=== PATIENT | male | born 1965 | race Caucasian/White ===

== ENCOUNTER 2020-03-25 02:54 | Emergency (ER) | payer SELFPAY ==
--- NOTE | 2020-03-25 02:59 | XR_ITS ---
WS: [id number] Exam: XR knee LT 3V* [id number] Date/Time of Exam: 03/25/2020 3:00 AM Reason For Exam: injury No acute fracture or dislocation. 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 No joint effusion. Normal soft tissues. XR/XR knee LT 3V* [id number] IMPRESSION: 1. Moderate degenerative change of the medial joint compartment. 2. No fracture or joint effusion.
--- NOTE | 2020-03-25 03:00 | W.ED.FALL ---
HPI - Fall General: Chief Complaint: Wound/Laceration Stated Complaint: injury to right knee/leg Time Seen by Provider: 03/25/20 02:56 Source: patient Mode of arrival: ambulatory Limitations: no limitations History of Present Illness: HPI Narrative: 54-year-old male states that he fell outside just prior to arrival. He fell onto his left leg straight onto his left knee. He does have a laceration over that knee. He states he had slight pain he rates a 6 out of 10. He is able to ambulate. Associated symptoms-after fall: Denies abdominal pain, chest pain, headache(s) or neck pain Review of Systems Const: Denies: fever(s), chills, body aches or change in appetite Eyes: Denies: blurry vision or eye discomfort ENMT: Denies: throat pain or dental pain Card: Denies: chest pain Resp: Denies: dyspnea GI: Denies: abdominal pain, nausea, vomiting or diarrhea : Denies: dysuria Musc: Denies: neck pain or back pain Skin/Breast: Denies: rash Neuro: Denies: headache(s) Psych: Denies: depression David/Lymph: Denies: easy bruising All/Imm: Denies: urticaria Physical Exam Const: COMMON NORMALS: no acute distress, patient oriented x3 and healthy appearing HENMT: COMMON NORMALS: normocephalic and atraumatic HEAD & SCALP: normocephalic and atraumatic Eye: COMMON NORMALS: Equal, round and reactive pupils present and EOMs intact bilaterally PUPIL: Yes Equal, round and reactive pupils present Neck/C-Spine: COMMON NORMALS: full ROM and supple Chest: COMMONS NORMALS: normal inspection of the chest and normal palpation of entire chest wall Resp: COMMON NORMALS: normal respiratory effort, No retractions, No use of accessory muscles and clear to auscultation bilaterally AUSCULTATION: clear to auscultation bilaterally Cardio: COMMON NORMALS: regular rate, regular rhythm and No murmurs present (Cardio) RATE: regular rate RHYTHM: regular rhythm GI: COMMON NORMALS: Normal to inspection, nondistended, normoactive bowel sounds present, Soft to palpation, non-tender and no masses PALPATION: Yes Soft to palpation Extremity: COMMON NORMALS: normal to inspection and full ROM NARRATIVE EXTREMITY EXAM: Slight tenderness over knee does have a recent [place] laceration over his left knee anterior portion Neuro: COMMON NORMALS: patient oriented x3, moves all extremities and no focal motor deficits Psych: COMMON NORMALS: mental status grossly normal, Normal thought process present and cooperative THOUGHT PROCESS: Normal thought process present Skin: COMMON NORMALS: no rashes or lesions noted and no wounds GENERAL SKIN EXAM: no rashes or lesions noted Procedures Laceration Laceration 1: Site: lower extremity Side (If applicable): right Size (cm): 3 Description: flap Depth: simple, single layer Local Anesthetic: lidocaine 1% Amount of anesthesia used (mL): 10 Pre-repair: wound explored and irrigated extensively Skin layer closed with: nylon Size (cm): 4-0 Number of sutures: 7 Technique: simple, interrupted Course Vital Signs: Vital signs: Vital Signs Temperature 97.9 F 03/25/20 03:02 Pulse Rate 72 03/25/20 03:02 Respiratory Rate 18 03/25/20 03:02 Blood Pressure 155/82 03/25/20 03:02 Pulse Oximetry 98 03/25/20 03:02 MDM - Fall MDM Narrative: Medical decision making narrative: Patient presents here with laceration over his knee. X-ray showed no fractures. Patient had his laceration sutured and he is to watch for any signs of infection. He is to have the sutures removed in 2 weeks. 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
[2020-03-25 03:02] VITALS: BP 155/82; PULSE 72; RESP 18; TEMP 36.6; O2SAT 98; BMI 35.6
[2020-03-25] MEDS: tetanus-dipt-pertussis 0.5 mL SDV IM (03:39)
[2020-03-25 03:44] VITALS: BP 118/78; PULSE 73; O2SAT 98
== END 2020-03-25 03:44 | disposition home or self-care (01) ==
PROVIDERS: Emergency Provider Emergency Medicine
DX: S81.011A Laceration without foreign body, right knee, initial encounter (principal); W19.XXXA Unspecified fall, initial encounter; Z23 Encounter for immunization
CPT/HCPCS: 12002; 12345; 73562; 90471; 90715; 99281; 99283

== ENCOUNTER 2020-03-27 19:08 | Emergency (ER) | payer SELFPAY ==
[2020-03-27 19:13] VITALS: PULSE 90; RESP 20; TEMP 36.6; O2SAT 97; BMI 34.7
--- NOTE | 2020-03-27 23:28 | W.ED.EXTPRO ---
HPI - Extremity Problem General: Chief complaint: Extremity Problem,Nontraumatic Stated complaint: poss infection right leg Time Seen by Provider: 03/27/20 23:28 History of Present Illness: HPI Narrative: Patient is a 54-year-old male who comes to the ED with infection around laceration site. Patient was seen here in the ED on March 25 for a laceration to right knee and sutures were used to close it. Patient said he cut his right knee after he slipped on a rock and he fell down causing his right knee to hit body rock causing laceration. The last 24 hours patient has developed a erythema, warmth, tenderness and purulent drainage around the laceration site. He says the redness around the laceration site has continued to get larger. Drainage out of laceration site is malodorous. He also started developing fevers in the last 24 hours as well and he has been taking Tylenol and it has helped bring fevers down. Patient said he was not sent home on any prophylactic antibiotics after discharge from ED on March 25. He did say that he took some leftover Augmentin 1000 mg today before coming to the ED. Associated symptoms: Deny chest pain, fever(s) or rash Review of Systems Const: Denies: fever(s), chills or fatigue Eyes: Denies: change in vision or eye discomfort ENMT: Denies: throat pain, odynophagia, nasal discharge or nasal congestion Card: Denies: chest pain, palpitations, edema, swelling of feet/ankles, dyspnea on exertion or orthopnea Resp: Denies: dyspnea, productive cough or non-productive cough GI: Denies: abdominal pain, nausea, vomiting, diarrhea, constipation or hematochezia : Denies: flank pain, difficulty urinating, dysuria or hematuria Musc: Denies: neck pain, back pain or extremity swelling Skin/Breast: Reports: new lesions (Erythema, warmth and purulent drainage around laceration site.?Right knee.); Denies: rash Neuro: Denies: headache(s), numbness in extremities or weakness in extremities Physical Exam Const: COMMON NORMALS: no acute distress, patient oriented x3, healthy appearing and alert GENERAL APPEARANCE: cooperative and comfortable HENMT: COMMON NORMALS: normocephalic HEAD & SCALP: normocephalic MOUTH: Normal oral and palatal mucosa present THROAT: posterior oropharynx normal and uvula midline Neck/C-Spine: COMMON NORMALS: supple GENERAL: Yes normal visual inspection Resp: COMMON NORMALS: normal respiratory effort, No retractions, No use of accessory muscles and clear to auscultation bilaterally AUSCULTATION: clear to auscultation bilaterally Cardio: COMMON NORMALS: regular rate, regular rhythm, S1 normal heart sound present, S2 normal heart sound present, No gallops present (Cardio), No clicks present (Cardio), No murmurs present (Cardio) and Peripheral pulses 2+ throughout RATE: regular rate RHYTHM: regular rhythm HEART SOUNDS: S1 normal heart sound present and S2 normal heart sound present PERIPHERAL PULSES: Peripheral pulses 2+ throughout GI: COMMON NORMALS: Normal to inspection, nondistended, normoactive bowel sounds present, Soft to palpation, non-tender and no masses PALPATION: Yes Soft to palpation : COMMON NORMALS: Yes no CVA tenderness BLADDER/KIDNEY EXAM: Yes no CVA tenderness Back/Pelvis: COMMON NORMALS: no CVA tenderness Extremity: NARRATIVE EXTREMITY EXAM: Patient has laceration site that is just below the right knee and closed with sutures. It has surrounding erythema, warmth and tenderness. Bandage over laceration site had purulent and malodorous drainage on it. When palpating around laceration site no purulent drainage seen. Findings suggestive of cellulitis. Patient has full range of motion of right knee with very minimal pain. Exam findings negative for septic joint. GENERAL: Yes normal exam except as noted Neuro: COMMON NORMALS: patient oriented x3 and moves all extremities SENSORIUM/ORIENTATION: Yes alert Skin: NARRATIVE SKIN EXAM: Patient has laceration site that is just below the right knee and closed with sutures. It has surrounding erythema, warmth and tenderness. Bandage over laceration site had purulent and malodorous drainage on it. When palpating around laceration site no purulent drainage seen. Findings suggestive of cellulitis GENERAL SKIN EXAM: dry skin Course Vital Signs: Vital signs: Vital Signs Temperature 97.9 F 03/27/20 19:13 Pulse Rate 98 03/28/20 01:53 Respiratory Rate 17 03/28/20 01:53 Blood Pressure 134/89 03/28/20 01:53 Pulse Oximetry 99 03/28/20 01:53 MDM - Extremity (Nontraumatic) MDM Narrative: Medical decision making narrative: Patient is a 54-year-old male who comes to the ED with cellulitis developing around laceration on right knee. Patient was seen here on March 25 to get laceration sutured. Here in the ED patient has some erythema, warmth and tenderness around laceration site with malodorous purulent drainage. Patient has full range of motion in right knee joint with minimal pain ruling out possibility of septic joint. Findings suggestive of cellulitis and patient was given IV Rocephin while here in the ED. He was then discharged with a prescription for clindamycin. He was told to follow-up with his PCP in 5 days to reevaluate infection. Return to ED precautions given. Patient understood agree with plan. Lab Data: Attestation: I reviewed the patient's lab results. Labs: Lab Results 03/28/20 03/28/20 Range/Units 00:12 00:12 WBC 8.9 (4.0-10.0) 10^3/ uL RBC 4.66 (4.1-5.3) 10^6/u L Hgb 13.9 (11.7-16.6) g/dL Hct 41.3 L (42.0-52.0) % MCV 88.6 (80-94) fL MCH 29.8 (28.0-34.0) pg MCHC 33.7 (30.0-36.0) g/dL RDW 12.0 L (12.1-15.1) % Plt Count 148 (130-400) 10^3/c mm MPV 10.6 H (7.4-10.4) fL Neut % (Auto) 67.9 % Lymph % (Auto) 20.8 % [place] % (Auto) 9.9 % Eos % (Auto) 1.0 % Baso % (Auto) 0.2 % Neut # (Auto) 6.03 (1.8-7.7) 10^3/u L Lymph # (Auto) 1.9 (0.8-4.8) 10^3/u L [place] # (Auto) 0.9 (0.2-0.9) 10^3/u L Eos # (Auto) 0.1 (0.0-0.8) 10^3/u L Baso # (Auto) 0.0 (0.0-0.1) 10^3/u L Nucleated RBC % (a uto) 0 % Nucleated RBCs # 0.0 /100WBC Sodium 136 (136-145) mmol/L Potassium 3.8 (3.5-5.1) mmol/L Chloride 99 (98-107) mmol/L Carbon Dioxide 26 (22-29) mmol/L Anion Gap 14.8 (5-19) BUN 11 (6-20) mg/dL Creatinine 0.7 (0.7-1.2) mg/dL GFR Calculation 118.4 (90-130) mL/min Glucose 120 H (65-115) mg/dL Calculated Osmolal ity 283 L (285-295) mOsm/k g Calcium 9.3 (8.5-10.5) mg/dL Total Bilirubin 1.3 H (0.15-1.2) mg/dL AST 13 (0-40) U/L ALT 21 (0-41) U/L Alkaline Phosphata se 75 (40-130) IU/L Total Protein 7.2 (6.6-8.7) g/dL Albumin 3.9 (3.5-5.2) g/dL Globulin 3.3 (1.3-4.6) g/dL Discharge Plan Discharge Patient Disposition: Home Clinical Impression: Cellulitis Qualifiers: Site of cellulitis: extremity Site of cellulitis of extremity: lower extremity Laterality: right Qualified Code(s): L03.115 - Cellulitis of right lower limb Condition: Stable Prescriptions: New clindamycin HCl 150 mg capsule 300 mg PO QID 10 Days Qty: 80 RF: 0 Discharge Orders: Discharge ED (Routine); Ordered 03/28/20 Ordered By: Fritz Núñez Discharge Diet: Regular Discharge Activity: Resume usual activity Patient Instructions: Cellulitis (ED) Activity Restrictions/Additional Instructions: Follow-up with PCP as directed in about 5 days to reevaluate skin infection. Take full course of antibiotics as prescribed. Return to ED if after 2 to 3 days of taking antibiotics and infection is worsening. Take [id number] Tylenol or ibuprofen for pain or fevers. Please read and understand discharge instructions. If any questions, please ask. 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
[2020-03-28] MEDS: cefTRIAXone 2,000 MG in sodium chloride 0.9% (plus) 50 ML 100 MG IV (00:19)
[2020-03-28] MEDS: sodium chloride 0.9% 500 ML IV (00:19)
[2020-03-28 00:23] VITALS: BP 150/96; PULSE 97; RESP 20; O2SAT 97
[2020-03-28 00:29] LABS: Basophils % 0.2 %; Eosinophils # 0.1 10^3/uL (0.0-0.8); Hematocrit 41.3 % (42.0-52.0); Hemoglobin 13.9 g/dL (11.7-16.6); Lymphocytes # 1.9 10^3/uL (0.8-4.8); Lymphocytes % 20.8 %; Mean Corpuscular HGB Conc 33.7 g/dL (30.0-36.0); Mean Corpuscular Hemoglobin 29.8 pg (28.0-34.0); Mean Corpuscular Volume 88.6 fL (80-94); Mean Platelet Volume 10.6 fL (7.4-10.4); Monocytes # 0.9 10^3/uL (0.2-0.9); Monocytes % 9.9 %; Neutrophils # 6.03 10^3/uL (1.8-7.7); Neutrophils % 67.9 %; Nucleated Red Blood Cells % 0 %; Platelet Count 148 10^3/cmm (130-400); Red Blood Count 4.66 10^6/uL (4.1-5.3); White Blood Count 8.9 10^3/uL (4.0-10.0)
[2020-03-28 00:43] LABS: Alanine Aminotransferase 21 U/L (0-41); Albumin Level 3.9 g/dL (3.5-5.2); Alkaline Phosphatase 75 IU/L (40-130); Anion Gap 14.8 (5-19); Aspartate Amino Transferase 13 U/L (0-40); Blood Urea Nitrogen 11 mg/dL (6-20); Calcium 9.3 mg/dL (8.5-10.5); Carbon Dioxide 26 mmol/L (22-29); Chloride 99 mmol/L (98-107); Globulin 3.3 g/dL (1.3-4.6); Glomerular Filtration Rate 118.4 mL/min (90-130); Glucose 120 mg/dL (65-115); Osmolality Calculated 283 mOsm/kg (285-295); Potassium 3.8 mmol/L (3.5-5.1); Sodium 136 mmol/L (136-145); Total Bilirubin 1.3 mg/dL (0.15-1.2); Total Protein 7.2 g/dL (6.6-8.7)
[2020-03-28 01:53] VITALS: BP 134/89; PULSE 98; RESP 17; O2SAT 99
== END 2020-03-28 01:53 | disposition home or self-care (01) ==
PROVIDERS: Emergency Provider Physician Assistant
DX: L03.115 Cellulitis of right lower limb (principal)
CPT/HCPCS: 12345; 80053; 85025; 96365; 99282; 99283; J0696; J7040

== ENCOUNTER → 2020-04-27 08:34 | Outpatient (BNVA) | payer SELFPAY | PROVIDERS: PCP Nurse Practitioner Family; Visit Provider Urology | DX: N50.89 Other specified disorders of the male genital organs (principal); N43.3 Hydrocele, unspecified | CPT/HCPCS: 81003 ==

== ENCOUNTER 2020-04-28 07:20 | Outpatient (CLI) | payer SELFPAY ==
--- NOTE | 2020-04-28 07:15 | US_ITS ---
WS: [id number] TESTICULAR ULTRASOUND HISTORY: HYDROCELE COMPARISON: None available. TECHNIQUE: Real-time and color Doppler imaging or utilized to perform a testicular ultrasound. Right testicle: 4.8 cm x 3.0 cm x 2.3 cm. Normal size and echogenicity. No mass or torsion. Normal color Doppler is present throughout. Systolic and diastolic velocities are both present. No significant hydrocele. Right epididymis: Normal epididymis with no increased vascularity. Left testicle: 6.3 cm x 3.5 cm x 3.1 cm. Normal size and echogenicity. No mass or torsion. Normal color Doppler is present throughout. Systolic and diastolic velocities are both present. Large hydrocele displacing the testicle anteriorly. There is deformity and debris within the hydrocel e. Hydrocele measures at least 10.6 x 7.8 x 7.6 cm. Left epididymis: Normal epididymis with no increased vascularity. US/US scrotum [id number] IMPRESSION: 1. Extremely large LEFT hydrocele. Hydroceles predominantly simple but there i s mild floating debris. 2. LEFT testicle is being displaced by the hydrocele but appears normal.
== END 2020-04-28 07:21 | disposition home or self-care (01) ==
LOC: RAD 07:22
PROVIDERS: PCP Nurse Practitioner Family; Visit Provider Urology
DX: N43.3 Hydrocele, unspecified (principal)
CPT/HCPCS: 76870